=== PATIENT | female | born 1960 | race Caucasian/White ===

== ENCOUNTER 2023-12-07 17:27 | Emergency (ER) | payer BC, OTHER ==
[~2023-12-07] VITALS: Ht 157.5 cm; Wt 91.6 kg
[~2023-12-07 17:27] MED LIST: LISINOPRIL-HCT1 EAC1 PO
[2023-12-07 18:00] VITALS: TEMP 97.7
[2023-12-07] MEDS: TRAMADOL HCL 50 MG TAB PO STA (18:39)
[2023-12-07 21:14] VITALS: PULSE 61; RESP 16
[2023-12-07] MEDS ORDERED: ULTRAM 50MG50 MG PO (21:38)
[2023-12-07 22:21] VITALS: BP 122/62; PULSE 61; RESP 16; O2SAT 97
== END 2023-12-07 21:43 | disposition home or self-care (01) ==
LOC: ER 18:36
DX: S42.211A Unspecified displaced fracture of surgical neck of right humerus, initial encounter for closed fracture (principal); W18.39XA Other fall on same level, initial encounter; Y93.01 Activity, walking, marching and hiking; Y92.512 Supermarket, store or market as the place of occurrence of the external cause; I10 Essential (primary) hypertension
CPT/HCPCS: 99283